=== PATIENT | male | born 1995 | race Caucasian/White ===

== ENCOUNTER 2017-07-15 18:07 | Emergency (ER) | payer BC ==
[2017-07-15 18:50] LABS: #Basophils 0.1 thou/uL (0.0-0.2); #Eosinphils 0.1 thou/uL (0.0-0.7); #Lymphocytes 2.4 thou/uL (1.20-3.40); #Monocytes 0.5 thou/uL (0.11-0.59); #Neutrophils 2.8 thou/uL (1.40-6.50); %Basophils 1.9 % (0.0-1.0); %Eosinophils 2.3 % (0.0-10.0); %Lymphocytes 40.7 % (21.0-51.0); %Monocytes 7.8 % (0.0-10.0); Hematocrit 49.4 % (42.0-52.0); Mean Platelet Volume 8.1 fL (7.4-10.4); Red Blood Cell (RBC) Count 5.42 mill/uL (4.70-6.10); White Blood Cell (WBC) Count 5.9 thou/uL (4.8-10.8)
[2017-07-15 19:05] LABS: ALT (SGPT) 20 U/L (8-55); AST (SGOT) 19 U/L (5-34); Alkaline Phosphatase 59 U/L (40-150); Anion Gap 10 mmol/L (10-20); BUN (Urea Nitrogen) 11 mg/dL (8.9-20.6); Bilirubin, Total 0.8 mg/dL (0.2-1.2); Calc. Creatinine Clearance 0 mL/min (70-130); Calcium 9.9 mg/dL (7.8-10.44); Carbon Dioxide 31 mmol/L (22-29); Chloride 105 mmol/L (98-107); Estimated GFR-MDRD Greater than 90; Globulin 2.8 g/dL (2.4-3.5); Protein, Total 7.3 g/dL (6.0-8.3)
[2017-07-15 19:10] LABS: Troponin I Less than 0.010 ng/mL (< 0.028)
[2017-07-15] MEDS ORDERED: Fentanyl 100 MCG/2 ML VIAL ONE ×2 (20:10→20:28)
[2017-07-15] MEDS ORDERED: Midazolam HCl 2 mg/2 ml Vial ONE (20:10)
--- NOTE | 2017-07-15 20:26 | RAD ---
CHEST TWO VIEWS: History: Chest pain. Comparison: None. FINDINGS: Normal cardiac silhouette. Pulmonary vessels and hilum are normal. Costophrenic angles are clear. Hy perinflation likely due to vigorous inspiratory effort. No consolidation or masses. There is a moder ate left sided pneumothorax with the lung parenchyma projecting between the posterior left 4th and 5 th rib. No evidence of tension. IMPRESSION: Left sided pneumothorax without evidence of tension pneumothorax. Results of the study discussed leila Sánchez 07-15-17 at 6:35 p.m. Code CR POS: [facility]
--- NOTE | 2017-07-15 21:12 | RAD ---
ONE VIEW CHEST: Comparison: 07-15-17 at 8:39 p.m. History: Chest tube adjustment. FINDINGS: Re-demonstration of small bore left sided chest tube. The previously noted left sided pneumothorax c ontinues to slowly decrease in size. No significant cardiomediastinal shift. IMPRESSION: Left sided pneumothorax as above. POS: [facility]
--- NOTE | 2017-07-15 21:57 | RAD ---
ONE VIEW CHEST: Comparison: 07-15-17 at 5:47 p.m. History: Pneumothorax. FINDINGS: Interval placement of a small bore left sided chest tube. The pneumothorax has minimally decreased i n size when compared to the prior examination. No significant cardiomediastinal shift. IMPRESSION: Interval placement of a small bore left sided chest tube with minimal decrease in left sided pneumot horax. POS: [facility]
--- NOTE | 2017-07-16 01:21 | CON ---
DATE OF CONSULTATION: 07/15/2017 REASON FOR CONSULTATION: Left pneumothorax. PERTINENT HISTORY: The patient is a 22-year-old male who presented this evening with a first occurrence primary spontaneous left pneumothorax. Chest x- ray reveals a moderate size pneumothorax. The patient has no prior history of pneumothorax on either side. The patient has had no recent blunt trauma to the chest. PAST MEDICAL HISTORY: Significant for no chronic illnesses. PAST SURGICAL HISTORY: None. ALLERGIES: None. HOME MEDICATIONS: [id number] melatonin only as necessary for sleep. FAMILY HISTORY: Noncontributory for pneumothorax. REVIEW OF SYSTEMS: Otherwise noncontributory. LABORATORY AND X-RAY: Reviewed. PHYSICAL EXAMINATION: VITAL SIGNS: Height 6 feet 5 inches, weight 160 pounds, heart rate 78, blood pressure 115/70. GENERAL: Thin male, in no acute distress. He is fully oriented. HEENT: Grossly unremarkable. NECK: Without JVD or adenopathy. LUNGS: With diminished breath sounds on the left side. HEART: Regular rate and rhythm without murmur or rub. ABDOMEN: Soft and nontender, without palpable mass. EXTREMITIES: Without edema. VASCULAR: Palpable radial, femoral, and ankle pulses bilaterally. NEUROLOGIC: No focal deficits. IMPRESSION: First occurrence primary spontaneous left pneumothorax. RECOMMENDATIONS: Left tube thoracostomy to which the patient is in agreement following discussion with myself. The indications, benefits, alternatives, and risks were explained in detail to the patient. All questions were answered. The patient agrees to proceed without reservations. SALVADOR
--- NOTE | 2017-07-16 01:23 | OP ---
PREOPERATIVE DIAGNOSIS: First occurrence primary spontaneous left pneumothorax. SWITCH OPERATOR: Ronald Colon M.D. SHIRT TRIMMER: None. POSTOPERATIVE DIAGNOSIS: First occurrence primary spontaneous left pneumothorax. SPONGE AND NEEDLE COUNTS: Correct. ANESTHESIA: IV sedation and local at catheter insertion site. PROCEDURE PERFORMED: Left tube thoracostomy (8-Bengali pneumothorax catheter). DESCRIPTION OF PROCEDURE: Following informed consent, left tube thoracostomy was performed at the bedside in the emergency room. Intravenous sedation was achieved with 1 mg of Versed and a total of 50 mcg of fentanyl in 25 mcg increments. At the proposed tube insertion site, local anesthesia was achieved with 1% Xylocaine. A small stab incision was made. Pneumothorax catheter was introduced over the third rib. Catheter was connected to the Heimlich valve. Chest x-ray was obtained. This did reveal improvement in the left pneumothorax. Catheter was secured to skin with silk suture. Dressing was applied. The patient will be sent home with catheter in place. Instructions were provided to the patient and family. Follow up will be arranged in my office this coming Sunday with repeat x-ray at that time. The patient appeared to tolerate the procedure without evident problems. BLOOD LOSS: None. MTDD
== END 2017-07-15 22:05 | disposition home or self-care (01) ==
LOC: ERS 18:07
DX: J93.83 Other pneumothorax (principal)
CPT/HCPCS: 32551; 36415; 71010; 71020; 80053; 82553; 84484; 85025; 93005; 96374; 96375; 96376; J2250; J3010

== ENCOUNTER 2017-07-18 13:36 | Outpatient (CLI) | payer BC ==
--- NOTE | 2017-07-18 15:00 | RAD ---
CHEST TWO VIEWS: History: Spontaneous pneumothorax. Follow up. Comparison: 07-15-17 FINDINGS: Cardiac silhouette and pulmonary vasculature are unremarkable. Lungs remain hyperinflated. Mediastin um is midline. Small caliber left thoracostomy tube remains in place with minimal residual left apic al pneumothorax. No significant pleural fluid is evident. IMPRESSION: Minimal residual left apical pneumothorax. POS: [facility]
== END 2017-07-18 13:37 | disposition home or self-care (01) ==
LOC: RAD 13:36
PROVIDERS: ATTEND Thoracic Surgery (Cardiothoracic Vascular Surgery)
DX: J93.11 Primary spontaneous pneumothorax (principal)
CPT/HCPCS: 71020

== ENCOUNTER 2017-09-17 09:48 | Outpatient (CLI) | payer BC ==
--- NOTE | 2017-09-17 11:19 | RAD ---
PA AND LATERAL VIEWS OF CHEST: Date: 09/17/17 HISTORY: spontaneous pneumothorax. FINDINGS: Comparison made with exam of 07/18/17. There has been interval removal of the left-sided pleural catheter. The heart size I normal. The lung s are well expanded and clear. No focal areas of consolidation, pneumothoraces, or pleural effusions are seen. The bony thorax is unremarkable. IMPRESSION: Normal exam. POS: [facility]
== END 2017-09-17 09:49 | disposition home or self-care (01) ==
LOC: RAD 09:48
PROVIDERS: ATTEND Thoracic Surgery (Cardiothoracic Vascular Surgery)
DX: J93.11 Primary spontaneous pneumothorax (principal)
CPT/HCPCS: 71020